=== PATIENT | male | born 1990 | race African-American/Black ===

== ENCOUNTER 2018-03-16 20:05 | Emergency (ER) | payer OTHER ==
[~2018-03-16] VITALS: Ht 182.8 cm; Wt 127.0 kg
[2018-03-16] MEDS ORDERED: CEPHALEXIN500 M1 PO (20:23)
== END 2018-03-16 20:43 | disposition home or self-care (01) ==
LOC: ED 20:05
DX: S61.012A Laceration without foreign body of left thumb without damage to nail, initial encounter (principal); Z23 Encounter for immunization; Z91.040 Latex allergy status; X58.XXXA Exposure to other specified factors, initial encounter; Y93.89 Activity, other specified; Y92.89 Other specified places as the place of occurrence of the external cause; Y99.8 Other external cause status

== ENCOUNTER 2019-11-21 16:00 | Emergency (ER) | payer OTHER ==
[~2019-11-21] VITALS: Ht 182.8 cm; Wt 127.0 kg
[~2019-11-21 16:00] MED LIST: CEPHALEXIN500 M1 PO
[2019-11-21 17:01] LABS: BASO % 0.3 % (0.0-1.0); EOS % 0.3 % (1.0-4.0); HEMATOCRIT 49.4 % (42.0-52.0); HEMOGLOBIN 16.5 g/dl (14.0-18.0); LYMPH # 1.9 10*3/uL (1.3-4.4); LYMPH % 16.5 % (27.0-41.0); MEAN CELL VOLUME 87.9 fl (80.0-94.0); MEAN CORPUSCULAR HGB 29.4 pg (27.0-31.0); MEAN CORPUSCULAR HGB CONC 33.4 g/dl (33.0-37.0); MEAN PLATELET VOLUME 8.6 fl (9.6-12.3); MONO # 0.7 10*3/uL (0.1-1.0); MONO % 6.1 % (3.0-9.0); NEUT # 8.9 10*3/uL (2.3-7.9); NEUT % 76.4 % (47.0-73.0); PLATELET COUNT AUTOMATED 299 10*3/uL (130-400); RED BLOOD COUNT 5.62 10*6/uL (4.50-5.90); RED CELL DISTRI WIDTH 12.6 % (0-14.5); WHITE BLOOD COUNT 11.7 10*3/uL (4.8-10.8)
[2019-11-21 17:15] LABS: ALBUMIN 3.9 gm/dl (3.1-4.5); ALKALINE PHOSPHATASE 70 U/L (45-117); BUN 8 mg/dl (7-24); CHLORIDE 106 mmol/L (98-107); CREATININE 0.95 mg/dL (0.70-1.30); LIPASE 79 U/L (73-393); POTASSIUM 3.8 mmol/L (3.5-5.1); SGOT/AST 19 IU/L (3-35); SGPT/ALT 35 U/L (12-78); SODIUM 139 mmol/L (136-145); TOTAL PROTEIN 7.4 gm/dL (6.4-8.2)
[2019-11-21 18:39] LABS: CLARITY SL CLOUDY (CLEAR); COLOR YELLOW (YELLOW)
[2019-11-21 18:40] LABS: BILIRUBIN NEGATIVE (NEGATIVE); BLOOD NEGATIVE (NEGATIVE); GLUCOSE TRACE (NEGATIVE); KETONE 3+ (NEGATIVE); LEUKO ESTERASE NEGATIVE (NEGATIVE); NITRITE NEGATIVE (NEGATIVE); SPECIFIC GRAVITY 1.005 (1.005-1.030); UROBILINOGEN 0.2 E.U./dl (0.2-1.0)
[2019-11-21 18:43] LABS: RBC 0-2 rbc/hpf (0-2); WBC 0-2 wbc/hpf (0-5)
[2019-11-21 18:44] LABS: BACTERIA TRACE; MUCOUS TRACE
[2019-11-21] MEDS ORDERED: ZOFRAN4 MG PO (19:05)
== END 2019-11-21 19:24 | disposition home or self-care (01) ==
LOC: ED 16:00
PROVIDERS: Nurse Practitioner Family
DX: A08.4 Viral intestinal infection, unspecified (principal); R11.2 Nausea with vomiting, unspecified; R19.7 Diarrhea, unspecified; Z79.2 Long term (current) use of antibiotics

== ENCOUNTER 2019-11-27 10:04 | Emergency (ER) | payer OTHER ==
[~2019-11-27] VITALS: Ht 182.8 cm; Wt 127.0 kg
[~2019-11-27 10:04] MED LIST changes: +ZOFRAN4 MG PO
[2019-11-27 10:42] LABS: BASO # 0.1 10*3/uL (0.0-0.1); BASO % 0.4 % (0.0-1.0); EOS # 0.1 10*3/uL (0.0-0.4); EOS % 0.8 % (1.0-4.0); HEMATOCRIT 49.9 % (42.0-52.0); HEMOGLOBIN 17.2 g/dl (14.0-18.0); LYMPH # 1.7 10*3/uL (1.3-4.4); LYMPH % 14.9 % (27.0-41.0); MEAN CORPUSCULAR HGB 29.7 pg (27.0-31.0); MEAN CORPUSCULAR HGB CONC 34.5 g/dl (33.0-37.0); MEAN PLATELET VOLUME 8.6 fl (9.6-12.3); MONO # 0.8 10*3/uL (0.1-1.0); MONO % 7.4 % (3.0-9.0); NEUT # 8.7 10*3/uL (2.3-7.9); PLATELET COUNT AUTOMATED 288 10*3/uL (130-400); RED CELL DISTRI WIDTH 12.6 % (0-14.5); WHITE BLOOD COUNT 11.4 10*3/uL (4.8-10.8)
[2019-11-27 10:58] LABS: ALBUMIN 4.1 gm/dl (3.1-4.5); ALKALINE PHOSPHATASE 79 U/L (45-117); BUN 9 mg/dl (7-24); CHLORIDE 103 mmol/L (98-107); CREATININE 1.04 mg/dL (0.70-1.30); POTASSIUM 3.5 mmol/L (3.5-5.1); SGOT/AST 26 IU/L (3-35); SGPT/ALT 48 U/L (12-78); SODIUM 137 mmol/L (136-145); TOTAL PROTEIN 7.5 gm/dL (6.4-8.2)
[2019-11-27 11:01] LABS: TROPONIN I < 0.015 ng/ml (<0.045)
[2019-11-27] MEDS ORDERED: HYDROXYZINE HCL25 MG PO (12:30)
== END 2019-11-27 12:45 | disposition home or self-care (01) ==
LOC: ED 10:04
PROVIDERS: Physician Assistant
DX: F41.9 Anxiety disorder, unspecified (principal); F17.200 Nicotine dependence, unspecified, uncomplicated; Z79.899 Other long term (current) drug therapy

== ENCOUNTER 2020-10-31 12:15 | Emergency (ER) | payer OTHER ==
[~2020-10-31] VITALS: Ht 182.8 cm; Wt 140.6 kg
[~2020-10-31 12:15] MED LIST changes: +HYDROXYZINE HCL25 MG PO
[2020-10-31 13:46] LABS: BASO % 0.4 % (0.0-1.0); EOS # 0.1 10*3/uL (0.0-0.4); EOS % 0.6 % (1.0-4.0); HEMATOCRIT 49.4 % (42.0-52.0); LYMPH # 1.7 10*3/uL (1.3-4.4); LYMPH % 15.3 % (27.0-41.0); MEAN CELL VOLUME 87.6 fl (80.0-94.0); MEAN CORPUSCULAR HGB 29.6 pg (27.0-31.0); MEAN CORPUSCULAR HGB CONC 33.8 g/dl (33.0-37.0); MEAN PLATELET VOLUME 8.2 fl (9.6-12.3); MONO # 0.8 10*3/uL (0.1-1.0); MONO % 6.9 % (3.0-9.0); NEUT # 8.3 10*3/uL (2.3-7.9); NEUT % 76.1 % (47.0-73.0); PLATELET COUNT AUTOMATED 270 10*3/uL (130-400); RED BLOOD COUNT 5.64 10*6/uL (4.50-5.90); RED CELL DISTRI WIDTH 12.4 % (0-14.5); WHITE BLOOD COUNT 10.9 10*3/uL (4.8-10.8)
[2020-10-31 14:01] LABS: ALBUMIN 4.2 gm/dl (3.1-4.5); ALKALINE PHOSPHATASE 72 U/L (45-117); BUN 12 mg/dl (7-24); CHLORIDE 107 mmol/L (98-107); CREATININE 0.91 mg/dL (0.70-1.30); POTASSIUM 4.1 mmol/L (3.5-5.1); SGOT/AST 23 IU/L (3-35); SGPT/ALT 36 U/L (12-78); SODIUM 139 mmol/L (136-145); TOTAL PROTEIN 7.7 gm/dL (6.4-8.2)
[2020-10-31] MEDS ORDERED: ATIVAN1 MG PO (16:05)
== END 2020-10-31 16:22 | disposition home or self-care (01) ==
LOC: ED 12:15
PROVIDERS: Emergency Medicine
DX: F41.0 Panic disorder [episodic paroxysmal anxiety] (principal); Z79.2 Long term (current) use of antibiotics; Z79.899 Other long term (current) drug therapy

== ENCOUNTER 2021-03-26 16:10 | Emergency (ER) | payer OTHER ==
[~2021-03-26] VITALS: Ht 182.8 cm; Wt 139.7 kg
[~2021-03-26 16:10] MED LIST changes: +ATIVAN1 MG PO
[2021-03-26] MEDS ORDERED: PREDNISONE20 M1 PO (17:41)
== END 2021-03-26 18:00 | disposition home or self-care (01) ==
LOC: ED 16:10
DX: M54.2 Cervicalgia (principal); Z79.2 Long term (current) use of antibiotics; Z79.899 Other long term (current) drug therapy; Z98.890 Other specified postprocedural states

== ENCOUNTER 2022-08-07 15:11 | Emergency (ER) | payer OTHER ==
[~2022-08-07] VITALS: Ht 182.8 cm; Wt 136.1 kg
[~2022-08-07 15:11] MED LIST changes: +PREDNISONE20 M1 PO
== END 2022-08-07 16:47 | disposition home or self-care (01) ==
LOC: ED 15:11
DX: Z20.828 Contact with and (suspected) exposure to other viral communicable diseases (principal); Z90.89 Acquired absence of other organs

== ENCOUNTER 2022-08-11 15:00 | Emergency (ER) | payer OTHER ==
[~2022-08-11] VITALS: Ht 182.8 cm; Wt 136.1 kg
[2022-08-11] MEDS ORDERED: AMOXICILLIN500 M2 PO (19:58)
== END 2022-08-11 20:04 | disposition home or self-care (01) ==
LOC: ED 15:00
DX: H66.91 Otitis media, unspecified, right ear (principal); R03.0 Elevated blood-pressure reading, without diagnosis of hypertension; F17.200 Nicotine dependence, unspecified, uncomplicated; Z90.89 Acquired absence of other organs

== ENCOUNTER 2025-06-30 03:53 | Emergency (ER) | payer OTHER ==
[~2025-06-30] VITALS: Ht 182.8 cm; Wt 136.3 kg
[~2025-06-30 03:53] MED LIST changes: +AMOXICILLIN500 M2 PO
[2025-06-30 04:20] LABS: BILIRUBIN Negative (Negative); BLOOD 3+ (Negative); CLARITY Turbid (Clear); COLOR Red (Yellow); KETONE Negative (Negative); LEUKO ESTERASE 1+ (Negative); NITRITE Negative (Negative); PH 5.0 (4.5-8.0); SPECIFIC GRAVITY 1.025 (1.001-1.030); UROBILINOGEN 1.0 E.U./dl (0.0-1.0)
[2025-06-30 04:32] LABS: RBC TNTC rbc/hpf (0-2)
[2025-06-30] MEDS ORDERED: Ondansetron Hydrochloride 4 MG TAB SL ONE (05:20)
[2025-06-30] MEDS ORDERED: Ondansetron4 MG PO (05:26)
[2025-06-30] MEDS ORDERED: HYDROCODONE-AC1 EAC1 PO (05:26)
[2025-06-30] MEDS ORDERED: FLOMAX0.4 MG PO (05:26)
== END 2025-06-30 05:32 | disposition home or self-care (01) ==
LOC: ED 03:53
PROVIDERS: Internal Medicine
DX: N13.2 Hydronephrosis with renal and ureteral calculous obstruction (principal); N13.4 Hydroureter; F41.9 Anxiety disorder, unspecified; R10.30 Lower abdominal pain, unspecified